=== PATIENT | female | born 1975 | race Two or more races ===

== ENCOUNTER 2017-06-19 17:09 | Emergency (ER) | payer OTHER ==
[~2017-06-19] VITALS: Ht 172.7 cm; Wt 91.5 kg
[2017-06-19] MEDS ORDERED: SODIUM CHLORIDE 0.9% 1,000ML IVBOLUS ONE (18:30)
[2017-06-19] MEDS ORDERED: AMLO5TAB2 PO (18:49)
[2017-06-19 19:05] LABS: HEMATOCRIT 37.2 % (34.6-47.8); HEMOGLOBIN 12.1 g/dL (11.7-16.4); WHITE BLOOD COUNT 6.7 x10^3/uL (3.4-10)
[2017-06-19 19:17] LABS: BLOOD UREA NITROGEN 8 mg/dL (7-18)
[2017-06-19 19:21] LABS: IS PT STATUS REG ER OR PRE ER? YES
[2017-06-19 20:05] VITALS: BP 132/67
== END 2017-06-19 20:09 | disposition home or self-care (01) ==
LOC: ED 20:03
DX: R00.2 Palpitations (principal); I10 Essential (primary) hypertension; Z88.0 Allergy status to penicillin; Z88.6 Allergy status to analgesic agent
CPT/HCPCS: 36415; 71010; 80048; 82040; 84484; 85025; 93005; 96360; 99285; J7030